=== PATIENT | male | born 1980 | race Caucasian/White ===

== ENCOUNTER 2016-07-06 13:40 | Inpatient (IN) | payer OTHER ==
[~2016-07-06] VITALS: Ht 195.6 cm; Wt 107.7 kg
[2016-07-06] MEDS: NICOTINE 21MG/24HR 1 EA TRANSDERMAL TD SCH (09:00)
[2016-07-06 14:35] LABS: MEAN CORPUSCULAR HEMOGLOBIN 29.4 pg (27.0-33.0); MEAN CORPUSCULAR HGB CONC 34.9 g/dl (32.0-36.5); MEAN CORPUSCULAR VOLUME 84.1 fl (80.0-96.0); RED CELL DISTRIBUTION WIDTH 13.2 % (11.5-14.5); WHITE BLOOD COUNT 9.2 K/mm3 (4.0-10.0)
[2016-07-06 14:48] LABS: METHADONE URINE NEGATIVE (NEGATIVE)
--- NOTE | 2016-07-06 14:50 | ECGEPIP ---
Stationary ECG Study [facility] - ED Test Date: 2016-07-06 Pat Name: INDIRA CARD Department: Room: - Gender: M Lehr Tender: connor : 1980 Requested By: JOHANA DISLA Order Number: [id number] Reading MD: Jaciel Garcia Measurements Intervals [place] Rate: 54 P: -7 VA: 127 QRS: 0 QRSD: 93 T: 6 QT: 448 QTc: 427 Interpretive Statements SINUS BRADYCARDIA NONSPECIFIC T-WAVE ABNORMALITY NO PRIORS Electronically Signed On 07-06-2016 14:50:00 EDT by Jaciel Garcia
--- NOTE | 2016-07-06 15:05 | REP ---
CHEST, TWO VIEWS: There is no evidence of acute infiltrate. No pleural effusion is seen. The heart is normal in size. The mediastinal silhouette is unremarkable. The visualized osseous structures are intact. IMPRESSION: No acute pulmonary disease. Signed by Shan Mcgee MD 07/06/2016 04:48 P
[2016-07-06 15:09] LABS: ALBUMIN 4.4 GM/DL (3.2-5.2); ALBUMIN/GLOBULIN RATIO 1.22 (1.00-1.93); ALKALINE PHOSPHATASE 74 U/L (45-117); ALT/SGPT 38 U/L (12-78); ANION GAP 9 MEQ/L (8-16); AST/SGOT 24 U/L (15-37); BILIRUBIN,DIRECT 0.3 MG/DL (0.0-0.2); BLOOD UREA NITROGEN 13 MG/DL (7-18); CALCIUM LEVEL 9.3 MG/DL (8.5-10.1); CARBON DIOXIDE LEVEL 26 MEQ/L (21-32); CHLORIDE LEVEL 100 MEQ/L (98-107); CREATININE FOR GFR 0.97 MG/DL (0.70-1.30); GLOMERULAR FILTRATION RATE > 60.0 (>60); GLUCOSE, FASTING 87 MG/DL (70-105); POTASSIUM SERUM 3.9 MEQ/L (3.5-5.1); SODIUM LEVEL 135 MEQ/L (136-145)
[2016-07-06] MEDS ORDERED: MAALOX 30 ML SUSP *UDC PO PRN (17:30)
[2016-07-06] MEDS ORDERED: diphenhydrAMINE 25 MG CAP PO PRN (17:30)
[2016-07-06] MEDS ORDERED: MOM 30ML SUSPENSION UDC PO PRN (17:30)
[2016-07-06] MEDS: ACETAMINOPHEN TAB 650MG DOSE (2X325MG) PO PRN (18:04)
[2016-07-06 19:30] VITALS: BP 138/91
[2016-07-06] MEDS: traZODone 50 MG TAB PO PRN ×2 (21:27→23:19)
[2016-07-07] MEDS: NICOTINE 21MG/24HR 1 EA TRANSDERMAL TD SCH (10:27)
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
[2016-07-07 13:15] VITALS: BP 125/85
[2016-07-07] MEDS ORDERED: LORazepam 2 MG TAB PO PRN (15:45)
[2016-07-07] MEDS: MULTIVITAMINS/MINERALS THERAP 1 TAB PO SCH (15:57)
[2016-07-07] MEDS: FOLIC ACID 1 MG TAB PO SCH (15:57)
[2016-07-07 16:03] VITALS: BP 125/85
[2016-07-07] MEDS: LORazepam 1 MG TAB PO PRN (16:06)
[2016-07-07 18:00] VITALS: BP 152/98
[2016-07-07] MEDS: THIAMINE 100 MG TAB PO SCH (21:00)
--- NOTE | 2016-07-07 23:30 | HPE ---
DATE OF ADMISSION: 07/06/2016 HISTORY OF THE PRESENT ILLNESS: Please refer to psychiatric history and evaluation for further details on this admission. This examination and history is intended for medical issues which may need treatment, followup, or consult on this 35-year-old male. PRIMARY CARE PROVIDER: Ailyn. ALLERGIES: No known drug allergies. 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 ETOH: He drinks at least three times a week. Smokes: He occasionally would smoke, but he states he quit completely 3 days ago. Recreational drug use: None. PAST MEDICAL HISTORY: Negative. PAST SURGICAL HISTORY: Oral surgery. Left varicose vein surgery. HOME MEDICATIONS: None. FAMILY HISTORY: Noncontributory. LABORATORY STUDIES: CBC normal. Sodium 135, potassium 3.9, chloride 100, CO2 26, BUN and creatinine 13 and 0.97. Toxicology screen was negative. REVIEW OF SYSTEMS: Ten systems review was done and was unremarkable. The patient had no complaints. OBJECTIVE: Vital signs are stable. Height 77 inches, weight 106.7 kg, body mass index (BMI) 27.9. Blood pressure 140/84, pulse 65, respirations 12, oxygen saturation 99% on room air. Patient is alert and oriented times three. Pupils are equal and reactive to light. Extraocular movements intact. Cornea and sclerae clear. Conjunctivae is normal. No facial asymmetry. Pharynx: Tongue and gums pink and moist. Tongue is midline. Neck is supple without lymphadenopathy. No thyromegaly. No goiter. Carotids 2+ without bruit. Chest is clear to auscultation without wheeze or retraction. Heart is regular. Abdomen benign. Bowel sounds are positive. Genitalia/Rectal: Not done. Extremities show equal strength, full range of motion. No cyanosis, clubbing or edema. Peripheral pulses equal and palpable bilaterally. Skin is warm and dry. IMPRESSION AND PLAN: Psychiatric plan per psychiatry. No acute medical issues. EKG was done, shows sinus bradycardia at 54.
[2016-07-08 06:36] VITALS: BP 125/80
[2016-07-08] MEDS: MULTIVITAMINS/MINERALS THERAP 1 TAB PO SCH (08:58)
[2016-07-08] MEDS: NICOTINE 21MG/24HR 1 EA TRANSDERMAL TD SCH (08:58)
[2016-07-08] MEDS: THIAMINE 100 MG TAB PO SCH ×2 (08:58→21:34)
[2016-07-08] MEDS: FOLIC ACID 1 MG TAB PO SCH (08:58)
[2016-07-08 09:00] VITALS: BP 125/80
--- NOTE | 2016-07-08 11:22 | IPNPDOC ---
[facility] Progress Note Progress Note DATE OF SERVICE: 07/08/16 HISTORY: Day 3 of admission VITAL SIGNS: See below. NEW TEST RESULTS: EKG, bradycardia CURRENT MEDICATIONS: See below. MENTAL STATUS EXAMINATION: Patient is a 35-year old male, who is dressed in hospital attire, good hygiene, very tall Speech: Is delayed, soft in tone, irregular rate&rhythm Language skills are intact Thought processes including: delayed, impaired, obsessive, cyclical, paranoid and suspicious Thought content: " is playing me". Abstract reasoning, and computation: poor. Description of associations: fair Description of abnormal or psychotic thoughts: stating facts that did not occur , denies suicide/homicide, denies aud and visual disturbance. Judgment: poor Insight: poor. Orientation: oriented in all spheres Recent and remote memory: impaired Attention span and concentration: poor Fund of knowledge:limited. Mood: "good". Affect: antagonistic. DIAGNOSES: 1. bipolar I disorder, current episode mixed with psychotic features 2. alcohol dependence ASSESSMENT:met with pt alone today for the purpose of discussing diagnosis and treatment plan. He was not receptive to information and had to be constantly redirected to talking about the here and now versus his . He is fixated on her and states "I think my is playing me". He presents much like he did yesterday but with a bit less psychomotor retardation. 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 Pt states he slept well last night. He took one dose of Ativan in the evening. He has not had any CIWA symptoms. He was presented with a medication plan of risperidone and Depakote but is not agreeable to taking them. He states he only wants to take medicaton for anxiety. Explained buspar and the need to dose tid and to take 2 weeks to reach therapeutic level. He is agreeable to this. He agreed to attend therapeutic programing. MANAGEMENT PLAN: begin risperidone 0.5 mg bid begin depakote 250 mg bid. Goal is to address psychosis and impulse control. continue CIWA and close observation. may visit daily during off hours due to babysitting needs. Will speak with about intervening regarding pts compliance with treatment recommendations. Case discussed with Dr. Reno. EEG ordered to r/o medical causation of symptoms. Nursing will address HIV testing per Dr. Reno. arrived in afternoon for visitation. She is also trying to convince him that medications are necessary. She did not want Abilify used. We will order risperidone instead. Risks and benefits explained to of risperidone and Depakote. Naina asked about a visit by their 17 month old son. 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 If pt is going to be referred to long-term treatment by the [employer] a visit with the baby will be arranged during a high staffing period to ensure safety. Support and encouragement rendered to both pt and . Slava signed BREANA allowing agency to speak with his Mother, Arely Lloyd. Call, placed and message left with contact information provided as there was no answer. TIME SPENT: 30 minutes. Vital Signs Vital Signs Date Time Temp Pulse Resp B/P (MAP) Pulse Ox O2 Delivery O2 Flow Rate FiO2 07/08/16 06:36 96.4 84 18 125/80 (95) 07/06/16 19:30 98 Room Air Current Medications Current Medications Acetaminophen (Tylenol Tab) 650 mg Q6HP PRN PO HEADACHE or DISCOMFORT Last administered on 07/06/16 18:04; Start 07/06/16 at 17:30; Stop 08/05/16 at 17:29 Al Hydrox/Mg Hydrox/Simethicone (Mylanta) 30 ml Q4HP PRN PO HEARTBURN/ INDIGESTION; Start 07/06/16 at 17:30; Stop 08/05/16 at 17:29 Diphenhydramine HCl (Benadryl) 50 mg Q6HP PRN PO ANXIETY/AGITATION; Start at 17:30; Stop 08/05/16 at 17:29 Folic Acid (Folic Acid) 1 mg DAILY PO Last administered on 07/07/16 15:57; Start 07/07/16 at 09:00; Stop 08/06/16 at 08:59 Haloperidol (Haldol) 5 mg Q6HP PRN PO ANXIETY/AGITATION; Start 07/06/16 at 17:30 ; Stop 08/05/16 at 17:29 Home Med (Med Rec Complete!) ASDIRECTED XX ; Start 07/06/16 at 17:00; Stop at 17:00; Status DC Lorazepam (Ativan) 2 mg ASDIRECTED PRN PO SEE PROTOCOL; Start 07/07/16 at 15:45 ; Stop 07/14/16 at 15:44 Lorazepam (Ativan) 2 mg Q6HP PRN PO ANXIETY/AGITATION Last administered on 16:06; Start 07/06/16 at 17:30; Stop 07/13/16 at 17:29 Magnesium Hydroxide (Milk Of Magnesia) 30 ml DAILYPRN PRN PO CONSTIPATION; Start 07/06/16 at 17:30; Stop 08/05/16 at 17:29 Multivitamins (Theragram-M) 1 tab DAILY PO Last administered on 07/07/16 15:57 ; Start 07/07/16 at 09:00; Stop 08/06/16 at 08:59 Nicotine (Nicoderm Cq 21mg) 1 patch DAILY TD Last administered on 07/07/16 10: 27; Start 07/06/16 at 09:00; Stop 08/05/16 at 08:59 Thiamine HCl (Thiamine HCl) 100 mg BID PO ; Start 07/07/16 at 21:00; Stop at 20:59 Trazodone HCl (Desyrel) 50 mg QHSP PRN PO INSOMNIA Last administered on 23:19; Start 07/06/16 at 17:30; Stop 08/05/16 at 17:29 Allergies Coded Allergies: No Known Allergies (Unverified , 07/06/16) Peggy Rodrigues July 08, 2016 11:22
[2016-07-08 12:00] VITALS: BP 130/88
[2016-07-08] MEDS: HALOPERIDOL 5 MG TAB PO PRN (16:03)
[2016-07-08] MEDS: busPIRone 10 MG TAB PO SCH ×2 (16:19→21:34)
[2016-07-08 18:00] VITALS: BP 140/80
[2016-07-08 20:20] VITALS: BP 140/80
[2016-07-08] MEDS: DIVALPROEX 250MG *ER* TAB PO SCH (21:34)
[2016-07-08] MEDS: traZODone 50 MG TAB PO PRN (21:34)
[2016-07-08] MEDS: risperiDONE 0.5 MG TAB PO SCH (21:34)
[2016-07-09 06:01] VITALS: BP 134/92
[2016-07-09] MEDS: NICOTINE 21MG/24HR 1 EA TRANSDERMAL TD SCH (09:00)
[2016-07-09] MEDS: MULTIVITAMINS/MINERALS THERAP 1 TAB PO SCH (09:12)
[2016-07-09] MEDS: risperiDONE 0.5 MG TAB PO SCH ×2 (09:12→19:33)
[2016-07-09] MEDS: busPIRone 10 MG TAB PO SCH ×3 (09:12→19:32)
[2016-07-09] MEDS: DIVALPROEX 250MG *ER* TAB PO SCH ×2 (09:12→19:33)
[2016-07-09] MEDS: THIAMINE 100 MG TAB PO SCH ×2 (09:12→19:32)
[2016-07-09] MEDS: FOLIC ACID 1 MG TAB PO SCH (09:12)
[2016-07-09] MEDS: HALOPERIDOL 5 MG TAB PO PRN ×2 (10:01→19:32)
[2016-07-09 10:14] VITALS: BP 130/80
[2016-07-09 10:18] VITALS: BP 130/80
[2016-07-09 18:00] VITALS: BP 122/59
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
[2016-07-09] MEDS: LORazepam 1 MG TAB PO PRN (19:33)
[2016-07-09 19:47] VITALS: BP 152/96
[2016-07-10 06:28] VITALS: BP 158/80
[2016-07-10 08:59] VITALS: BP 158/80
[2016-07-10] MEDS: NICOTINE 21MG/24HR 1 EA TRANSDERMAL TD SCH ×2 (09:00→14:19)
[2016-07-10] MEDS: FOLIC ACID 1 MG TAB PO SCH (09:48)
[2016-07-10] MEDS: DIVALPROEX 250MG *ER* TAB PO SCH ×2 (09:48→20:40)
[2016-07-10] MEDS: THIAMINE 100 MG TAB PO SCH (09:49)
[2016-07-10] MEDS: busPIRone 10 MG TAB PO SCH ×3 (09:49→20:40)
[2016-07-10] MEDS: risperiDONE 0.5 MG TAB PO SCH ×2 (09:49→20:40)
[2016-07-10] MEDS: MULTIVITAMINS/MINERALS THERAP 1 TAB PO SCH (09:49)
[2016-07-10 12:00] VITALS: BP 144/80
[2016-07-10 18:00] VITALS: BP 136/85
--- NOTE | 2016-07-10 21:25 | IPN ---
DATE: 07/10/2016 CHIEF COMPLAINT: Says feels okay. SUBJECTIVE: He is seen for followup, in the presence of staff. Says feels okay, and that he has been out and about in the lounge. He says sleep was better, but that he would rather be sleeping home, says he misses his family. Says his visited yesterday, and that went well. He also indicates his brain has slowed down somewhat, and that he feels relaxed. MENTAL STATUS EXAMINATION: He is neat and somewhat less guarded. No agitation, no psychomotor retardation. Appears more relaxed, less distracted. He is coherent. Affect is reactive, though restricted in range, not labile, like when seen yesterday. He denies any suicidal thoughts or intents. No homicidal ideas or intents. No overt paranoid ideations elicited at present. Judgment is possibly somewhat improved, but compromised overall, insight fair at best. ASSESSMENT: Bipolar disorder, current episode possibly manic, the presence of psychotic features is to be considered. Rule out bipolar disorder, mixed episode. Appears that he has a more even-keeled mood today. PLAN: He is to continue current care. He is to continue with his current medication regimen. He is to be encouraged to participate in activities in the unit. He is due to have an EEG planned tomorrow. Further recommendations will be made depending on the clinical picture. VITAL SIGNS: Blood pressure 144/80, pulse 100, temperature 98.7.
[2016-07-10 22:00] VITALS: BP 138/80
[2016-07-10] MEDS: traZODone 50 MG TAB PO PRN (22:14)
[2016-07-11] MEDS: ACETAMINOPHEN TAB 650MG DOSE (2X325MG) PO PRN (03:53)
[2016-07-11 07:00] VITALS: BP 130/86
[2016-07-11] MEDS: NICOTINE 21MG/24HR 1 EA TRANSDERMAL TD SCH (08:37)
[2016-07-11] MEDS: MULTIVITAMINS/MINERALS THERAP 1 TAB PO SCH (08:38)
[2016-07-11] MEDS: busPIRone 10 MG TAB PO SCH ×3 (08:38→20:08)
[2016-07-11] MEDS: FOLIC ACID 1 MG TAB PO SCH (08:38)
[2016-07-11] MEDS: risperiDONE 0.5 MG TAB PO SCH ×2 (08:38→20:08)
[2016-07-11] MEDS: DIVALPROEX 250MG *ER* TAB PO SCH (08:38)
--- NOTE | 2016-07-11 14:05 | MHIPNPDOC ---
[facility] Progress Note Progress Note DATE OF SERVICE: 07/11/16 HISTORY: Day 6 of admission VITAL SIGNS: See below. NEW TEST RESULTS: awaiting sleep deprived EEG CURRENT MEDICATIONS: See below. MENTAL STATUS EXAMINATION: Patient is a 35-year old male, who is dressed in hospital attire, good eye contact, good hygiene, pleasant and cooperative. 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 Description of associations: good Description of abnormal or psychotic thoughts: no SI or HI, disappointed with himself but no psychotic symptoms illicited. Judgment: fair Insight: fair. Orientation: oriented in all spheres. Recent and remote memory: impaired Attention span and concentration: varies Fund of knowledge: limited with regard to his mental illness Mood: "good". Affect: depressed, anxious DIAGNOSES: 1. Bipolar I disorder, current episode mixed with psychotic features. 2. Nicotine dependence 3. ASSESSMENT:Pt is improving. He is taking medications as ordered which will continue to help his progress. He is not ready for discharge. He still has difficulty putting his thoughts into words. He is overwhelmed by stressors of work, marriage, young son, home needs repairs. 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 Pt reports some difficulty sleeping. he states he took Trazodone before in college after his Grandfather . he does not recall the dose. he said he was under a lot of stress at that time and trazodone was helpful to him. Pt reports improved mood and feeling more like himself. He still sighs a great deal and voices that he feels stressed about his work. 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 Pt reports his visited on Monday and she will return tomorrow. In the meantime he is benefitting from the milieu. He is attending therapeutic programs and interacting appropriately with others. He smiles more readily. MANAGEMENT PLAN: Will increase trazodone to 100 mg per pts request for increase. Will also raise depakote by 250 mg at hs. total daily dose will be 750 mg now. Radio Frequency Engineer discussed risks and benefits of all his medications and answered all his questions. Will discuss with the request for a visit with son this week as pt does seem in a much frame of mind. Reviewed Vital signs, meds, and labs. TIME SPENT: 30 minutes. Vital Signs Vital Signs Date Time Temp Pulse Resp B/P (MAP) Pulse Ox O2 Delivery O2 Flow Rate FiO2 07/11/16 07:00 99.2 113 20 130/86 (101) 07/09/16 06:01 Room Air 07/06/16 19:30 98 Current Medications Current Medications Acetaminophen (Tylenol Tab) 650 mg Q6HP PRN PO HEADACHE or DISCOMFORT Last administered on 07/11/16 03:53; Start 07/06/16 at 17:30; Stop 08/05/16 at 17:29 Al Hydrox/Mg Hydrox/Simethicone (Mylanta) 30 ml Q4HP PRN PO HEARTBURN/ INDIGESTION; Start 07/06/16 at 17:30; Stop 08/05/16 at 17:29 Buspirone HCl (Buspar) 10 mg TID PO Last administered on 07/11/16 08:38; Start 07/08/16 at 16:00; Stop 08/07/16 at 15:59 Diphenhydramine HCl (Benadryl) 50 mg Q6HP PRN PO ANXIETY/AGITATION Last administered on 07/09/16 19:33; Start 07/06/16 at 17:30; Stop 08/05/16 at 17:29 Divalproex Sodium (Depakote Er) 250 mg BID PO Last administered on 07/11/16 08: 38; Start 07/08/16 at 21:00; Stop 08/07/16 at 20:59 Folic Acid (Folic Acid) 1 mg DAILY PO Last administered on 07/11/16 08:38; Start 07/07/16 at 09:00; Stop 08/06/16 at 08:59 Haloperidol (Haldol) 5 mg Q6HP PRN PO ANXIETY/AGITATION Last administered on 19:32; Start 07/06/16 at 17:30; Stop 08/05/16 at 17:29 Home Med (Med Rec Complete!) ASDIRECTED XX ; Start 07/06/16 at 17:00; Stop at 17:00; Status DC Lorazepam (Ativan) 2 mg ASDIRECTED PRN PO SEE PROTOCOL; Start 07/07/16 at 15:45 ; Stop 07/14/16 at 15:44 Lorazepam (Ativan) 2 mg Q6HP PRN PO ANXIETY/AGITATION Last administered on 19:33; Start 07/06/16 at 17:30; Stop 07/13/16 at 17:29 Magnesium Hydroxide (Milk Of Magnesia) 30 ml DAILYPRN PRN PO CONSTIPATION; Start 07/06/16 at 17:30; Stop 08/05/16 at 17:29 Multivitamins (Theragram-M) 1 tab DAILY PO Last administered on 07/11/16 08:38 ; Start 07/07/16 at 09:00; Stop 08/06/16 at 08:59 Nicotine (Nicoderm Cq 21mg) 1 patch DAILY TD Last administered on 07/11/16 08: 37; Start 07/06/16 at 09:00; Stop 08/05/16 at 08:59 Risperidone (RisperDAL) 0.5 mg BID PO Last administered on 07/11/16 08:38; Start 07/08/16 at 21:00; Stop 08/07/16 at 20:59 Thiamine HCl (Thiamine HCl) 100 mg BID PO Last administered on 07/10/16 09:49; Start 07/07/16 at 21:00; Stop 07/10/16 at 20:59; Status DC Trazodone HCl (Desyrel) 50 mg QHSP PRN PO INSOMNIA Last administered on 22:14; Start 07/06/16 at 17:30; Stop 08/05/16 at 17:29 Allergies Coded Allergies: No Known Allergies (Unverified , 07/06/16) Peggy Rodrigues July 11, 2016 14:05
[2016-07-11 16:53] VITALS: BP 132/80
[2016-07-11 18:00] VITALS: BP 140/84
[2016-07-11] MEDS: traZODone 100 MG TAB PO PRN (20:08)
[2016-07-11 20:09] VITALS: BP 136/78
[2016-07-11] MEDS: DIVALPROEX 500MG *ER* TAB PO SCH (20:09)
[2016-07-12 06:23] VITALS: BP 146/78
[2016-07-12] MEDS: DIVALPROEX 250MG *ER* TAB PO SCH (08:13)
[2016-07-12] MEDS: risperiDONE 0.5 MG TAB PO SCH ×2 (08:13→21:09)
[2016-07-12] MEDS: MULTIVITAMINS/MINERALS THERAP 1 TAB PO SCH (08:13)
[2016-07-12] MEDS: FOLIC ACID 1 MG TAB PO SCH (08:13)
[2016-07-12] MEDS: busPIRone 10 MG TAB PO SCH ×3 (08:13→21:09)
[2016-07-12] MEDS: NICOTINE 21MG/24HR 1 EA TRANSDERMAL TD SCH (08:14)
[2016-07-12 12:49] VITALS: BP 150/93
--- NOTE | 2016-07-12 14:29 | MHIPNPDOC ---
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 VITAL SIGNS: See below. NEW TEST RESULTS: awaiting sleep deprived EEG results CURRENT MEDICATIONS: See below. MENTAL STATUS EXAMINATION: Patient is a 35-year old male, who is dressed in sweat pants and T-shirt, hygiene is good, eye contact good, shows more affect than several days ago. Pleasant and cooperative. Speech: Is fluid, spontaneous. Language skills are good. much less delay in expressing thoughts Thought processes including: organized, remains with paranoia but less suspicious Thought content: self-critical, criticizing his performance on the job. Wants to talk to Command. Abstract reasoning, and computation: good. 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 Denies auditory and visual disturbance. Judgment: limited. Insight: limited. Orientation: oriented to person, place, time and situation. Needed to be told the date. Recent and remote memory: appears intact Attention span and concentration: improved, holding a conversation longer, stays on point when speaking Fund of knowledge: fair. Mood: "good, I feel less stressed". Affect: more range. DIAGNOSES: 1. bipolar I disorder, current episode depressed r/o mixed episode 2. Alcohol abuse 3. Insomnia ASSESSMENT:Pt is showing signs of mood improvement and thought disorder improvement. He is less tangential and circumstantial. He can change topics and respond to changes faster. He is taking medications and can see the benefit. He is asking for a meeting with his command. Slava has been very active on the unit , attending most every group. He is sleeping and reports he has had insomnia before when stressed and many times he has felt sleep deprived. He feels this is what has impacted his behavior on the job and his with his . MANAGEMENT PLAN: Attempted to contact Slava's mother as she called the Unit Monday and we have not been able to connect. Apparently she has a new number and we will have to wait until Naina arrives to get it. Muck Miner Blasting wanted to discuss family history with Mother. Muck Miner Blasting will continue to titrate depakote and get a level this week. Pt is not completely well or stable yet or ready to return to work. He will need additional time on the medication before he is stabilized. Hopefully he will be ready for discharge next week with IOP and follow up care. Marital counseling would also be beneficial TIME SPENT: 30 minutes. Vital Signs Vital Signs Date Time Temp Pulse Resp B/P (MAP) Pulse Ox O2 Delivery O2 Flow Rate FiO2 07/12/16 12:49 98.9 82 16 150/93 (112) 07/09/16 06:01 Room Air 07/06/16 19:30 98 Current Medications Current Medications Acetaminophen (Tylenol Tab) 650 mg Q6HP PRN PO HEADACHE or DISCOMFORT Last administered on 07/11/16 03:53; Start 07/06/16 at 17:30; Stop 08/05/16 at 17:29 Al Hydrox/Mg Hydrox/Simethicone (Mylanta) 30 ml Q4HP PRN PO HEARTBURN/ INDIGESTION; Start 07/06/16 at 17:30; Stop 08/05/16 at 17:29 Buspirone HCl (Buspar) 10 mg TID PO Last administered on 07/12/16 08:13; Start 07/08/16 at 16:00; Stop 08/07/16 at 15:59 Diphenhydramine HCl (Benadryl) 50 mg Q6HP PRN PO ANXIETY/AGITATION Last administered on 07/09/16 19:33; Start 07/06/16 at 17:30; Stop 08/05/16 at 17:29 Divalproex Sodium (Depakote Er) 250 mg BID PO Last administered on 07/11/16 08: 38; Start 07/08/16 at 21:00; Stop 07/11/16 at 13:53; Status DC Divalproex Sodium (Depakote Er) 250 mg DAILY PO Last administered on 07/12/16 08:13; Start 07/12/16 at 09:00; Stop 08/11/16 at 08:59 Divalproex Sodium (Depakote Er) 500 mg QHS PO Last administered on 07/11/16 20: 09; Start 07/11/16 at 21:00; Stop 08/10/16 at 20:59 Folic Acid (Folic Acid) 1 mg DAILY PO Last administered on 07/12/16 08:13; Start 07/07/16 at 09:00; Stop 08/06/16 at 08:59 Haloperidol (Haldol) 5 mg Q6HP PRN PO ANXIETY/AGITATION Last administered on 19:32; Start 07/06/16 at 17:30; Stop 08/05/16 at 17:29 Home Med (Med Rec Complete!) ASDIRECTED XX ; Start 07/06/16 at 17:00; Stop at 17:00; Status DC Lorazepam (Ativan) 2 mg ASDIRECTED PRN PO SEE PROTOCOL; Start 07/07/16 at 15:45 ; Stop 07/14/16 at 15:44 Lorazepam (Ativan) 2 mg Q6HP PRN PO ANXIETY/AGITATION Last administered on 19:33; Start 07/06/16 at 17:30; Stop 07/26/16 at 17:29 Magnesium Hydroxide (Milk Of Magnesia) 30 ml DAILYPRN PRN PO CONSTIPATION; Start 07/06/16 at 17:30; Stop 08/05/16 at 17:29 Multivitamins (Theragram-M) 1 tab DAILY PO Last administered on 07/12/16 08:13 ; Start 07/07/16 at 09:00; Stop 08/06/16 at 08:59 Nicotine (Nicoderm Cq 21mg) 1 patch DAILY TD Last administered on 07/12/16 08: 14; Start 07/06/16 at 09:00; Stop 08/05/16 at 08:59 Risperidone (RisperDAL) 0.5 mg BID PO Last administered on 07/12/16 08:13; Start 07/08/16 at 21:00; Stop 08/07/16 at 20:59 Thiamine HCl (Thiamine HCl) 100 mg BID PO Last administered on 07/10/16 09:49; Start 07/07/16 at 21:00; Stop 07/10/16 at 20:59; Status DC Trazodone HCl (Desyrel) 50 mg QHSP PRN PO INSOMNIA Last administered on 22:14; Start 07/06/16 at 17:30; Stop 07/11/16 at 13:53; Status DC Trazodone HCl (Desyrel) 100 mg QHSP PRN PO INSOMNIA Last administered on 20:08; Start 07/11/16 at 14:00; Stop 08/10/16 at 13:59 Allergies Coded Allergies: No Known Allergies (Unverified , 07/06/16) Peggy Rodrigues July 12, 2016 14:29
[2016-07-12] MEDS: ACETAMINOPHEN TAB 650MG DOSE (2X325MG) PO PRN (15:34)
--- NOTE | 2016-07-12 17:09 | EEG ---
DATE OF PROCEDURE: 07/11/2016 REFERRING PHYSICIAN: Dr. Shan Grant. DIAGNOSIS: Altered mental status. EEG #: [id number] HISTORY: The patient is a 35-year-old male who was admitted at [facility] due to altered mental status. The patient has a history of alcohol abuse. This EEG was done to rule out epileptic potential. He is currently taking Depakote, Risperdal, BuSpar, Haldol, Ativan, folic acid, thiamine, etc. TECHNICAL DESCRIPTION: This digital EEG was recorded by 21 scalp, ear and two EKG electrodes and was reviewed in bipolar and referential montages following reformatting in 10-20 international electrode placement system. INTERPRETATION: The patient was noted to be in awake and drowsy states during this EEG. Resting awake background rhythm consisted of well-formed posterior dominant rhythm with anterior/posterior gradient comprising of 10 Hz alpha activity measuring 15-40 microvolts in amplitude which was symmetric and reactive to eye opening. Attenuation of posterior dominant rhythm was seen during transition into drowsiness. Stage I and II sleep were reviewed and were symmetric bilaterally. Hyperventilation elicited mild theta slowing of background rhythm. Photic stimulation at 3-30 Hz elicited symmetric photic driving, especially at mid frequencies. EKG revealed normal sinus rhythm. No focal, lateralizing or epileptiform abnormalities were seen. No clinical or electrographic seizures were recorded. 5-6 Hz phantom spikes were seen in stage I sleep on two occasions, which represents a normal variant. CONCLUSION: This EEG in awake, drowsy states, stage I and II sleep is within normal limits.
[2016-07-12 18:33] VITALS: BP 143/78
[2016-07-12] MEDS: DIVALPROEX 500MG *ER* TAB PO SCH (21:09)
[2016-07-12] MEDS: traZODone 100 MG TAB PO PRN (21:09)
[2016-07-13 06:19] VITALS: BP 137/88
[2016-07-13] MEDS: MULTIVITAMINS/MINERALS THERAP 1 TAB PO SCH (08:32)
[2016-07-13] MEDS: busPIRone 10 MG TAB PO SCH ×3 (08:32→20:27)
[2016-07-13] MEDS: FOLIC ACID 1 MG TAB PO SCH (08:32)
[2016-07-13] MEDS: DIVALPROEX 250MG *ER* TAB PO SCH (08:32)
[2016-07-13] MEDS: NICOTINE 21MG/24HR 1 EA TRANSDERMAL TD SCH (08:33)
[2016-07-13] MEDS: risperiDONE 0.5 MG TAB PO SCH ×2 (08:33→20:27)
[2016-07-13 12:00] VITALS: BP 146/71
--- NOTE | 2016-07-13 14:13 | MHIPNPDOC ---
[facility] Progress Note Progress Note DATE OF SERVICE: 07/13/16 HISTORY: Day 8 of admission. VITAL SIGNS: See below. NEW TEST RESULTS: Sleep deprived EEG within normal limits CURRENT MEDICATIONS: See below. MENTAL STATUS EXAMINATION: Patient is a 35-year old male, who is dressed in sweats and a t-shirt, appears tense, sighs and is cooperative. Speech: Is spontaneous, clear, no hesitation in answering Language skills are intact Thought processes including: goal directed Thought content: his job, how he has been treated on his job,. Abstract reasoning, and computation: good. Description of associations: good Description of abnormal or psychotic thoughts: pt feels his decompensation in emotional wellbeing was completely related to lack of sleep.No SI or HI. Pt denies hearing voices or seeing things. Judgment: good Insight: fair. Orientation: A & O x 3 Recent and remote memory: good Attention span and concentration: good. Fund of knowledge: full Mood: anxious. Affect: congruent DIAGNOSES: 1. bipolar I disorder most recent episode depressed 2. Alcohol abuse 3. Insomnia ASSESSMENT:Pt was visited by his son today. He was very pleased we could make this happen on the unit. is encouraged by positive changes in Slava. She states she feels comfortable with him. She has arranged for some family support for the 2 of them this month. Slava is asking for a KAROL meeting and he would like to be considered for discharge. I can support this but would suggest he have 2 additional weeks off from work to help him recover more fully from his emotional collapse. He wants to reduce his use of alcohol and intends to continue with MEILIE. MANAGEMENT PLAN: Continue medications, will order depakote level and raise depakote today. Pt is sleeping much better, thoughts are well organized and he can complete his sentences. Instrument Lens Grinder Apprentice was able to verify family history when visited today. Slava had a paternal uncle with schizophrenia. TIME SPENT: 30 minutes. Vital Signs Vital Signs Date Time Temp Pulse Resp B/P (MAP) Pulse Ox O2 Delivery O2 Flow Rate FiO2 07/13/16 12:00 99.0 90 16 146/71 (96) 07/13/16 06:19 Room Air Current Medications Current Medications Acetaminophen (Tylenol Tab) 650 mg Q6HP PRN PO HEADACHE or DISCOMFORT Last administered on 07/12/16t 15:34; Start 07/06/16 at 17:30; Stop 08/05/16 at 17:29 Al Hydrox/Mg Hydrox/Simethicone (Mylanta) 30 ml Q4HP PRN PO HEARTBURN/ INDIGESTION; Start 07/06/16 at 17:30; Stop 08/05/16 at 17:29 Buspirone HCl (Buspar) 10 mg TID PO Last administered on 07/13/16 08:32; Start 07/08/16 at 16:00; Stop 08/07/16 at 15:59 Diphenhydramine HCl (Benadryl) 50 mg Q6HP PRN PO ANXIETY/AGITATION Last administered on 07/09/16 19:33; Start 07/06/16 at 17:30; Stop 08/05/16 at 17:29 Divalproex Sodium (Depakote Er) 250 mg BID PO Last administered on 07/11/16 08: 38; Start 07/08/16 at 21:00; Stop 07/11/16 at 13:53; Status DC Divalproex Sodium (Depakote Er) 250 mg DAILY PO Last administered on 07/13/16 08:32; Start 07/12/16 at 09:00; Stop 08/11/16 at 08:59 Divalproex Sodium (Depakote Er) 500 mg QHS PO Last administered on 07/12/16 21: 09; Start 07/11/16 at 21:00; Stop 08/10/16 at 20:59 Folic Acid (Folic Acid) 1 mg DAILY PO Last administered on 07/13/16 08:32; Start 07/07/16 at 09:00; Stop 08/06/16 at 08:59 Haloperidol (Haldol) 5 mg Q6HP PRN PO ANXIETY/AGITATION Last administered on 19:32; Start 07/06/16 at 17:30; Stop 08/05/16 at 17:29 Home Med (Med Rec Complete!) ASDIRECTED XX ; Start 07/06/16 at 17:00; Stop at 17:00; Status DC Lorazepam (Ativan) 2 mg ASDIRECTED PRN PO SEE PROTOCOL; Start 07/07/16 at 15:45 ; Stop 07/14/16 at 15:44; Status Cancel Lorazepam (Ativan) 2 mg Q6HP PRN PO ANXIETY/AGITATION Last administered on 19:33; Start 07/06/16 at 17:30; Stop 07/26/16 at 17:29 Magnesium Hydroxide (Milk Of Magnesia) 30 ml DAILYPRN PRN PO CONSTIPATION; Start 07/06/16 at 17:30; Stop 08/05/16 at 17:29 Multivitamins (Theragram-M) 1 tab DAILY PO Last administered on 07/13/16 08:32 ; Start 07/07/16 at 09:00; Stop 08/06/16 at 08:59 Nicotine (Nicoderm Cq 21mg) 1 patch DAILY TD Last administered on 07/12/16 08: 14; Start 07/06/16 at 09:00; Stop 08/05/16 at 08:59 Risperidone (RisperDAL) 0.5 mg BID PO Last administered on 07/13/16 08:33; Start 07/08/16 at 21:00; Stop 08/07/16 at 20:59 Thiamine HCl (Thiamine HCl) 100 mg BID PO Last administered on 07/10/16 09:49; Start 07/07/16 at 21:00; Stop 07/10/16 at 20:59; Status DC Trazodone HCl (Desyrel) 50 mg QHSP PRN PO INSOMNIA Last administered on 22:14; Start 07/06/16 at 17:30; Stop 07/11/16 at 13:53; Status DC Trazodone HCl (Desyrel) 100 mg QHSP PRN PO INSOMNIA Last administered on 21:09; Start 07/11/16 at 14:00; Stop 08/10/16 at 13:59 Allergies Coded Allergies: No Known Allergies (Unverified , 07/06/16) Peggy Rodrigues July 13, 2016 14:13
[2016-07-13 17:46] VITALS: BP 139/73
[2016-07-13 18:00] VITALS: BP 146/87
[2016-07-13] MEDS: DIVALPROEX 500MG *ER* TAB PO SCH (20:27)
[2016-07-13] MEDS: traZODone 100 MG TAB PO PRN (21:09)
[2016-07-14 06:33] VITALS: BP 137/81
[2016-07-14] MEDS: MULTIVITAMINS/MINERALS THERAP 1 TAB PO SCH (08:22)
[2016-07-14] MEDS: busPIRone 10 MG TAB PO SCH ×3 (08:22→21:33)
[2016-07-14] MEDS: risperiDONE 0.5 MG TAB PO SCH ×2 (08:22→21:33)
[2016-07-14] MEDS: FOLIC ACID 1 MG TAB PO SCH (08:22)
[2016-07-14] MEDS: NICOTINE 21MG/24HR 1 EA TRANSDERMAL TD SCH (09:00)
--- NOTE | 2016-07-14 16:00 | MHIPNPDOC ---
[facility] Progress Note Progress Note DATE OF SERVICE: 07/14/16 HISTORY: Day 9 of admission/KAROL meeting today at 11:30 VITAL SIGNS: See below. NEW TEST RESULTS: valproic acid level low at 27.3 CURRENT MEDICATIONS: See below. MENTAL STATUS EXAMINATION: Patient is a 35-year old male, who is wearing sweats and a t-shirt, hygiene is excellent, eye contact is good. Speech: Is spontaneous Language skills are intact Thought processes including: linear and goal directed, some delay in expressing self but much less than last week. Thought content: appropriate, much less preoccupied with work performance. Abstract reasoning, and computation: good Description of associations: good Description of abnormal or psychotic thoughts: none. Judgment: good Insight: fair Orientation: well oriented. Recent and remote memory: good Attention span and concentration: adequate Fund of knowledge: good Mood: euthymic. Affect: mildly anxious DIAGNOSES: 1. bipolar I disorder current episode manic 2. 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 pt will also be seen by Behavioral health weekly which will also benefit him. 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 Pt explained his decline prior to admission citing sleep problems which have plagued him for a long time. [employer] is in agreement with a 90 days no weapons profile. Pt states at home he will use a pill box to keep track of his medications. He agrees to continue his medication on discharge. His will be following up with this along with other family members when she is not in [place]. MANAGEMENT PLAN: continue medications, observation and groups. Discharge Tomorrow afternoon 1 p.m. order to increase depakote will be entered today as level is subtherapeutic. TIME SPENT: 30 minutes. Vital Signs Vital Signs Date Time Temp Pulse Resp B/P (MAP) Pulse Ox O2 Delivery O2 Flow Rate FiO2 07/14/16 06:33 98.2 83 18 137/81 (99) 07/13/16 18:00 Room Air Laboratory Data 24H Labs Laboratory Tests 2 07/14/16 13:53: Valproic Acid (Depakene) Level 27.3L Current Medications Current Medications Acetaminophen (Tylenol Tab) 650 mg Q6HP PRN PO HEADACHE or DISCOMFORT Last administered on 07/12/16 15:34; Start 07/06/16 at 17:30; Stop 08/05/16 at 17:29 Al Hydrox/Mg Hydrox/Simethicone (Mylanta) 30 ml Q4HP PRN PO HEARTBURN/ INDIGESTION; Start 07/06/16 at 17:30; Stop 08/05/16 at 17:29 Buspirone HCl (Buspar) 10 mg TID PO Last administered on 07/14/16 08:22; Start 07/08/16 at 16:00; Stop 08/07/16 at 15:59 Diphenhydramine HCl (Benadryl) 50 mg Q6HP PRN PO ANXIETY/AGITATION Last administered on 07/09/16 19:33; Start 07/06/16 at 17:30; Stop 08/05/16 at 17:29 Divalproex Sodium (Depakote Er) 250 mg BID PO Last administered on 07/11/16 08: 38; Start 07/08/16 at 21:00; Stop 07/11/16 at 13:53; Status DC Divalproex Sodium (Depakote Er) 250 mg DAILY PO Last administered on 07/13/16 08:32; Start 07/12/16 at 09:00; Stop 08/11/16 at 08:59; Status Future hold Divalproex Sodium (Depakote Er) 500 mg QHS PO Last administered on 07/13/16 20 :27; Start 07/11/16 at 21:00; Stop 08/10/16 at 20:59 Folic Acid (Folic Acid) 1 mg DAILY PO Last administered on 07/14/16 08:22; Start 07/07/16 at 09:00; Stop 08/06/16 at 08:59 Haloperidol (Haldol) 5 mg Q6HP PRN PO ANXIETY/AGITATION Last administered on 19:32; Start 07/06/16 at 17:30; Stop 08/05/16 at 17:29 Home Med (Med Rec Complete!) ASDIRECTED XX ; Start 07/06/16 at 17:00; Stop at 17:00; Status DC Lorazepam (Ativan) 2 mg ASDIRECTED PRN PO SEE PROTOCOL; Start 07/07/16 at 15:45 ; Stop 07/14/16 at 15:44; Status Cancel Lorazepam (Ativan) 2 mg Q6HP PRN PO ANXIETY/AGITATION Last administered on 19:33; Start 07/06/16 at 17:30; Stop 07/26/16 at 17:29 Magnesium Hydroxide (Milk Of Magnesia) 30 ml DAILYPRN PRN PO CONSTIPATION; Start 07/06/16 at 17:30; Stop 08/05/16 at 17:29 Multivitamins (Theragram-M) 1 tab DAILY PO Last administered on 07/14/16 08:22 ; Start 07/07/16 at 09:00; Stop 08/06/16 at 08:59 Nicotine (Nicoderm Cq 21mg) 1 patch DAILY TD Last administered on 07/12/16 08: 14; Start 07/06/16 at 09:00; Stop 08/05/16 at 08:59 Risperidone (RisperDAL) 0.5 mg BID PO Last administered on 07/14/16 08:22; Start 07/08/16 at 21:00; Stop 08/07/16 at 20:59 Thiamine HCl (Thiamine HCl) 100 mg BID PO Last administered on 07/10/16 09:49; Start 07/07/16 at 21:00; Stop 07/10/16 at 20:59; Status DC Trazodone HCl (Desyrel) 50 mg QHSP PRN PO INSOMNIA Last administered on 22:14; Start 07/06/16 at 17:30; Stop 07/11/16 at 13:53; Status DC Trazodone HCl (Desyrel) 100 mg QHSP PRN PO INSOMNIA Last administered on 21:09; Start 07/11/16 at 14:00; Stop 08/10/16 at 13:59 Allergies Coded Allergies: No Known Allergies (Unverified , 07/06/16) Peggy Rodrigues July 14, 2016 16:00
[2016-07-14] MEDS ORDERED: LORazepam 2 MG TAB PO PRN (16:07)
[2016-07-14 18:00] VITALS: BP 144/65
[2016-07-14] MEDS: DIVALPROEX 500MG *ER* TAB PO SCH (21:33)
[2016-07-14] MEDS: traZODone 100 MG TAB PO PRN (22:57)
[2016-07-15 06:12] VITALS: BP 148/74
[2016-07-15] MEDS: risperiDONE 0.5 MG TAB PO SCH (08:01)
[2016-07-15] MEDS: NICOTINE 21MG/24HR 1 EA TRANSDERMAL TD SCH (08:01)
[2016-07-15] MEDS: FOLIC ACID 1 MG TAB PO SCH (08:01)
[2016-07-15] MEDS: busPIRone 10 MG TAB PO SCH (08:01)
[2016-07-15] MEDS: MULTIVITAMINS/MINERALS THERAP 1 TAB PO SCH (08:01)
[2016-07-15] MEDS ORDERED: BUSP10TA PO (08:34)
[2016-07-15] MEDS ORDERED: TRAZ10TA PO (08:34)
[2016-07-15] MEDS ORDERED: RISP0.5T16 PO (08:34)
[2016-07-15] MEDS ORDERED: DEPA500T2 PO (08:34)
[2016-07-15] MEDS ORDERED: DIVALPROEX 500MG *ER* TAB PO SCH (09:00)
[2016-07-15] MEDS ORDERED: NICO14DI20 TD (09:47)
--- NOTE | 2016-07-25 15:48 | MHDSPDOC ---
[facility] Discharge Summary Discharge Summary DATE OF ADMISSION: July 06, 2016 at 17:31 DATE OF DISCHARGE: July 15, 2016 at 12:15 DISCHARGE DIAGNOSES: 1. bipolar I disorder current episode manic 2. alcohol dependence REASON FOR ADMISSION: pt was observed to be behaving much out of character than his usual presentation. He was determined to be argumentative with peers and superiors. He was not counseling his subordinates well. He was taking a long time to reply to questions and at times appeared disoriented and confused. He was admitted for evaluation and stabilization after being [facility] CONSULTANTS INVOLVED: sleep deprived EKG TREATMENT AND PROGRESS ON THE UNIT : Pt reluctantly agreed to attend unit activities and therapeutic programming. He also agreed to medications after the first 24 hours when all he wanted was to talk to his . Once his was on the unit he was easy to engage in treatment and was an active participant in the treatment process. Pt believes he was sleep deprived prior to admission and this is why his behavior was so unusual. He was observed on the unit wandering into areas he should not have been and not being in tune with what was being said or what was taking place. HOSPITAL COURSE: pt responded well to low doses of depakote and risperidone. His thought process became much more linear and relevant compared to his status on admission. Pt does accept he has an alcohol problem and is motivated to address this. He is not accepting of the bipolar diagnosis at this time but is agreeable to treatment and follow up at discharge. Pt progressed enough to permit a visit on the unit by his 17 month old son. His anxiety grew less and less but originally was extremely high, almost palpable. Sleep was good during the admission and the disjointed presentation became less and less. When his first arrived he did not even acknowledge her presence in the room. This was most unusual. DISCHARGE ASSESSMENT: MENTAL STATUS EXAMINATION ON DISCHARGE: Patient is a 35-year old male, who is dressed in street clothes, clean, and very tall. Speech is clear, spontaneous Language skills are good Thought processes including: goal directed Thought content: future oriented. Abstract reasoning, and computation: good Description of associations: good Description of abnormal or psychotic thoughts: no evidence of hallucinations, no si or hi, suspicions, paranoia and delusions observed. Judgment: good Insight: fair Orientation to all spheres very good. Recent and remote memory: intact Attention span and concentration: good Fund of knowledge: average Mood: euthymic Affect: congruent MEDICATIONS ON DISCHARGE: - risperidone for mood and thought organization - depakote for impulse control - trazodone for as needed for sleep. -nicotene patch for smoking cessation. pt stated his desire to quit and was enc to do so. PLAN/FOLLOWUP ARRANGEMENTS: [facility] The amount of time spent in the coordination of care for this patient was approximately 40minutes. Medications Scheduled Buspirone HCl (Buspirone HCl) 10 Mg Tab, 10 MG PO TID for ANXIETY for 7 Days, # 21 Divalproex Sodium (Depakote ER) 500 Mg Tab, 500 MG PO BID for MOOD for 7 Days, # 14 Nicotine (Nicotine 14MG Patch) 1 Patch Tdsy, 1 PATCH TD DAILY for SMOKING CESSATION, #10 Risperidone (Risperdal) 0.5 Mg Tab, 0.5 MG PO BID for MOOD for 7 Days, #14 Scheduled PRN Trazodone HCl (Trazodone HCl) 100 Mg Tab, 100 MG PO QHSP PRN for INSOMNIA for 7 Days, #7 take as needed for insomnia Allergies Coded Allergies: No Known Allergies (Unverified , 07/06/16) Peggy Rodrigues July 25, 2016 15:48
== END 2016-07-15 12:15 | disposition home or self-care (01) | DRG 885 ==
LOC: M ED 17:30 → M ED INP 17:31 → M PSY 18:50
PROVIDERS: ADMIT Psychiatry & Neurology Child & Adolescent Psychiatry; ATTEND Psychiatry & Neurology Child & Adolescent Psychiatry
DX: F31.9 Bipolar disorder, unspecified (principal); F10.20 Alcohol dependence, uncomplicated; Z81.8 Family history of other mental and behavioral disorders; Z91.82 Personal history of military deployment

== ENCOUNTER → 2016-10-21 | Outpatient (CLI) | payer OTHER ==
[~2016-10-21] MED LIST: ABIL30TA4 PO; BUSP10TA PO; CEFD1CAP8 PO; DEPA500T2 PO; NICO14DI20 TD; RISP0.5T21 PO; TRAZ10TA PO
--- NOTE | 2016-10-21 16:48 | REP ---
CT of the chest without IV contrast: The patient reportedly had calcified pulmonary nodules and hilar lymphadenopathy in the chest x-ray. The chest x-ray is not available for review. The current study is performed without IV contrast from lung apices through the lung bases. There are no calcifications in the pulmonary parenchyma. There are no medial spinal or hilar calcifications. No chest wall calcifications. There are no noncalcified lung nodules or masses. There is no mediastinal lymph node enlargement. In the absence of IV contrast the study is insensitive for hilar lymph node enlargement. The unenhanced thoracic aorta is unremarkable. Cardiac size is normal. The visualized upper abdominal contents are unremarkable. Impression: There are no lung nodules or masses. There are no lung calcifications. There are no calcified nodules. There are no mediastinal or hilar calcifications. Otherwise, negative CT study of the chest without IV contrast. The study is insensitive for hilar lymph node enlargement in the absence of IV contrast Signed by Shan Clark MD 10/21/2016 04:38 P
== END ==
LOC: M RAD 15:44
PROVIDERS: ATTEND Family Medicine
DX: R91.8 Other nonspecific abnormal finding of lung field (principal)

== ENCOUNTER 2016-12-12 11:15 | Emergency (ER) | payer OTHER ==
[~2016-12-12] VITALS: Ht 195.6 cm; Wt 105.0 kg
[2016-12-12 11:15] VITALS: BP 139/72
[~2016-12-12 11:15] MED LIST changes: -ABIL30TA4 PO; -CEFD1CAP8 PO
[2016-12-12] MEDS ORDERED: ABIL30TA4 PO (11:26)
[2016-12-12] MEDS ORDERED: CEFD1CAP8 PO (11:56)
== END 2016-12-12 12:07 | disposition home or self-care (01) ==
LOC: M ED 11:15
DX: H66.91 Otitis media, unspecified, right ear (principal); F17.210 Nicotine dependence, cigarettes, uncomplicated; Z79.899 Other long term (current) drug therapy